=== PATIENT | female | born 1995 | race African-American/Black ===

== ENCOUNTER 2024-01-19 11:31 | Emergency (ER) | payer MEDICAID ==
[~2024-01-19] VITALS: Ht 170.2 cm; Wt 80.0 kg
[~2024-01-19 11:31] MED LIST: ALBUTEROL
[2024-01-19 11:35] VITALS: TEMP 98.8; O2SAT 99
[2024-01-19 13:08] LABS: HEMATOCRIT. 42.8 % (36.0-48.0); HEMOGLOBIN. 14.4 g/dL (12.0-16.0); MEAN CORPUSCULAR HGB CONC 33.7 g/dL (31.0-37.0); MEAN CORPUSCULAR VOLUME 100.9 fL (81.0-99.0); PLATELET 269 x1000/uL (130-400); RED BLOOD CELL COUNT 4.25 mill/uL (4.2-5.4); RED CELL DISTRIBUTION WIDTH 12.8 % (11.6-14.6); WHITE BLOOD COUNT 10.4 x1000/uL (4.5-11.0)
[2024-01-19 13:12] LABS: CARBON DIOXIDE 22 mEq/L (21-32); CHLORIDE 109 mEq/L (98-107); POTASSIUM 3.7 mEq/L (3.5-5.1); SODIUM 139 mEq/L (136-145)
[2024-01-19 13:14] LABS: DIFFERENTIAL COMMENT 1
[2024-01-19 13:18] LABS: CREATININE 0.8 mg/dL (0.6-1.0); GLUCOSE 132 mg/dL (70-105); UREA NITROGEN BLOOD 12 mg/dL (9-23)
[2024-01-19 13:19] LABS: ALANINE AMINOTRANSFERASE 16 IU/L (10-49); ALBUMIN 5.1 g/dL (3.2-4.8); ASPARTATE AMINOTRANSFERASE 26 IU/L (<34)
[2024-01-19 13:20] LABS: BILIRUBIN TOTAL 0.5 mg/dL (0.1-1.0); PROTEIN TOTAL 7.8 g/dL (6.0-8.3)
[2024-01-19] MEDS: FAMOTIDINE 20MG/2ML VIAL IV NR (13:32)
[2024-01-19 13:34] VITALS: BP 157/98; PULSE 80; RESP 16
[2024-01-19] MEDS: MORPHINE SULFATE 4 MG/ML INJ (FOR IV/IM USE) IV ONE (13:34)
[2024-01-19] MEDS: DEXAMETHASONE 4MG/ML 1ML VIAL IV NR (13:34)
[2024-01-19] MEDS: SODIUM CHLORIDE 0.9% 1,000 ML IV ONE (13:34)
[2024-01-19] MEDS: ONDANSETRON HCL 4MG/2ML INJ IV NR (13:34)
[2024-01-19] MEDS ORDERED: FAMO-135 MT (14:57)
[2024-01-19] MEDS ORDERED: DEX4 MT (14:57)
[2024-01-19] MEDS ORDERED: ONDA4TAB11 PO (14:57)
[2024-01-19 15:52] LABS: PLATELET ESTIMATE NORMAL
== END 2024-01-19 14:54 | disposition left against medical advice (07) ==
LOC: ER 11:31
DX: K52.9 Noninfective gastroenteritis and colitis, unspecified (principal); J45.909 Unspecified asthma, uncomplicated
CPT/HCPCS: 99284; 96374; 96375; 80053; 83690; 85025; 36415; J1100; J3490; J2405; J2270